=== PATIENT | male | born 1990 | race Caucasian/White ===

== ENCOUNTER 2017-10-26 08:52 | Emergency (ER) | payer SELFPAY ==
[~2017-10-26] VITALS: Ht 180.3 cm; Wt 65.8 kg
[~2017-10-26 08:52] MED LIST: AZIT250 PO; CEPH500 PO; CYCL10 PO; DIPATR PO; HYDACE5 PO; IBUP600 PO; LORA.5 PO; LORA1 PO; LORA2 PO; Loperamide2 MG PO; NAPR500 PO; NAPR550 PO; PREVPAC PO; PROC10 PO; PROM25 PO; Percocet 5-3251 EACH PO; RXHYDACE PO; TOBR.3OPSO OS; TRAM50 PO; Ventolin/Prove6.7 GM INH; Zofran Odt4 MG SL
[2017-10-26 10:42] LABS: Specimen Source penis
[2017-10-26 10:44] LABS: Source, Urine Clean Catch
[2017-10-26 10:47] LABS: Bilirubin, Urine Neg (Neg); Blood, Urine 1+ (Neg); Glucose Qualitative, Urine 3+ (Neg); Ketones, Urine Neg (Neg); Leukocyte Esterase, Urine 3+ (Neg); Nitrite, Urine Neg (Neg); Protein, Urine Neg (Neg); Specific Gravity, Urine 1.015 (1.003-1.022); Urobilinogen, Urine NORM (Normal); pH, Urine 6.5 (5.0-8.0)
[2017-10-26 10:55] LABS: Appearance, Urine Clear (Clear); Color, Urine Yellow (P-Yellow)
[2017-10-26 10:56] LABS: White Blood Cells, Urine 50-100 /hpf (0-5)
[2017-10-26 10:57] LABS: Bacteria Not Seen /hpf; Red Blood Cells, Urine 0-2 /hpf (0-2); Squamous Epithelial Cells Few /hpf (Few)
[2017-10-27 04:01] LABS: Source Penis
== END 2017-10-26 11:14 | disposition home or self-care (01) ==
LOC: ER 08:52
PROVIDERS: Physician Assistant
DX: A64 Unspecified sexually transmitted disease (principal); F17.200 Nicotine dependence, unspecified, uncomplicated
CPT/HCPCS: 81001; 87086; 87491; 87591; 96372; 99283; J0696